=== PATIENT | male | born 1965 | race Caucasian/White ===

== ENCOUNTER 2017-10-08 13:48 | Emergency (ER) | payer MEDICAID ==
[~2017-10-08] VITALS: Ht 180.3 cm; Wt 80.0 kg
[2017-10-08] MEDS ORDERED: SODIUM CHLOR 0.9% 1000 ML INJ 1,000 ML IV SCH (14:10)
[2017-10-08] MEDS ORDERED: ONDANSETRON HCL 4 MG/2 ML VIAL IVP ONE (14:15)
[2017-10-08] MEDS ORDERED: HYDROmorphone HCL PF 2 MG/ML VIAL IV PUSH ONE (14:15)
[2017-10-08] MEDS ORDERED: SODIUM CHLORIDE 0.9% FLUSH 10 ML FLUSH IV FLUSH PRN (14:15)
[2017-10-08] MEDS ORDERED: FAMOTIDINE 20 MG/2 ML VIAL IV PUSH ONE (14:15)
--- NOTE | 2017-10-08 14:22 | PD ---
HPI Chief Complaint: Abdominal Pain Time Seen by Provider: 14:09 Travel History International Travel<30 days: No Contact w/Intl Traveler<30days: No Traveled to known affect area: No History of Present Illness HPI 52-year-old male complains of right flank pain and right upper quadrant abdominal pain. Patient states the symptoms started about 2 hours prior coming to the emergency room. EMS was called. Patient was given morphine 4 mg IV Zofran 4 mg IV prior to arrival. Patient denies any injury. Patient states the pain is severe sharp pain localized to right flank and right upper quadrant of the abdomen. Patient denies any pain radiation. Patient denies any fever chills. Patient denies any nausea vomiting diarrhea. Patient denies any abdominal surgery in the past. Patient states he is not on any routine medication. Patient stated he is allergic to medication. Patient has history of congenital heart disease in the past. On a scale of 1-10 the pain is a 10. PFSH Past Medical History ?: Not Social History Tobacco Use: No Allergies-Medications (Allergen,Severity, Reaction): Coded Allergies: No Known Allergies (Unverified , 10/08/17) Reported Meds & Prescriptions Reported Meds & Active Scripts Active Flomax (Tamsulosin HCl) 0.4 Mg Cap 0.4 Mg PO HS Zofran Odt (Ondansetron Odt) 4 Mg Tab 4 Mg SL Q6HR PRN [place] (Hydrocodone-Acetaminophen) 7.5-325 mg Tab 1 Tab PO Q6H PRN Review of Systems General / Constitutional: No: Fever Eyes: No: Visual changes HENT: No: Headaches Cardiovascular: No: Chest Pain or Discomfort Respiratory: No: Shortness of Breath Gastrointestinal: Positive: Abdominal Pain Genitourinary: No: Dysuria Musculoskeletal: No: Pain Skin: No Rash Neurologic: No: Weakness Psychiatric: No: Depression Endocrine: No: Polydipsia Hematologic/Lymphatic: No: Easy Bruising Physical Exam Narrative GENERAL: Well-nourished, well-developed patient. SKIN: Focused skin assessment warm/dry. HEAD: Normocephalic. EYES: No scleral icterus. No injection or drainage. NECK: Supple, trachea midline. No JVD or lymphadenopathy. CARDIOVASCULAR: Regular rate and rhythm without murmurs, gallops, or rubs. RESPIRATORY: Breath sounds equal bilaterally. No accessory muscle use. GASTROINTESTINAL: Abdomen soft, nondistended. Patient has moderate tenderness on palpation right upper quadrant and right flank area. No rebound tenderness. No mass. MUSCULOSKELETAL: No cyanosis, or edema. BACK: Nontender without obvious deformity. No CVA tenderness. Neurologic exam normal. Data Data Last Documented VS Vital Signs Date Time Temp Pulse Resp B/P (MAP) Pulse Ox O2 Delivery O2 Flow Rate FiO2 10/08/17 16:46 78 15 142/76 (98) 93 10/08/17 15:39 Room Air Orders Orders Complete Blood Count With Diff (10/08/17 14:10) Comprehensive Metabolic Panel (10/08/17 14:10) Lipase (10/08/17 14:10) Ct Abd/Pel W Iv Contrast(Rout) (10/08/17 14:10) Iv Access Insert/Monitor (10/08/17 14:10) Ecg Monitoring (10/08/17 14:10) Oximetry (10/08/17 14:10) Ondansetron Inj (Zofran Inj) (10/08/17 14:15) Sodium Chlor 0.9% 1000 Ml Inj (Ns 1000 M (10/08/17 14:10) Sodium Chloride 0.9% Flush (Ns Flush) (10/08/17 14:15) Famotidine Inj (Pepcid Inj) (10/08/17 14:15) Hydromorphone Pf Inj (Dilaudid Pf Inj) (10/08/17 14:15) Iohexol 350 Inj (Omnipaque 350 Inj) (10/08/17 15:37) Ketorolac Inj (Toradol Inj) (10/08/17 16:15) Ed Discharge Order (10/08/17 16:15) Labs Laboratory Tests Test 10/08/17 14:20 White Blood Count 7.6 TH/MM3 Red Blood Count 4.61 MIL/MM3 Hemoglobin 13.0 GM/DL Hematocrit 38.7 % Mean Corpuscular Volume 83.8 FL Mean Corpuscular Hemoglobin 28.2 PG Mean Corpuscular Hemoglobin Concent 33.7 % Red Cell Distribution Width 14.1 % Platelet Count 229 TH/MM3 Mean Platelet Volume 8.5 FL Neutrophils (%) (Auto) 67.4 % Lymphocytes (%) (Auto) 24.4 % Monocytes (%) (Auto) 7.0 % Eosinophils (%) (Auto) 0.5 % Basophils (%) (Auto) 0.7 % Neutrophils # (Auto) 5.1 TH/MM3 Lymphocytes # (Auto) 1.8 TH/MM3 Monocytes # (Auto) 0.5 TH/MM3 Eosinophils # (Auto) 0.0 TH/MM3 Basophils # (Auto) 0.1 TH/MM3 CBC Comment DIFF FINAL Differential Comment Blood Urea Nitrogen 18 MG/DL Creatinine 1.18 MG/DL Random Glucose 117 MG/DL Total Protein 7.1 GM/DL Albumin 3.8 GM/DL Calcium Level 8.7 MG/DL Alkaline Phosphatase 64 U/L Aspartate Amino Transf (AST/SGOT) 23 U/L Alanine Aminotransferase (ALT/SGPT) 30 U/L Total Bilirubin 0.4 MG/DL Sodium Level 143 MEQ/L Potassium Level 3.7 MEQ/L Chloride Level 110 MEQ/L Carbon Dioxide Level 24.9 MEQ/L Anion Gap 8 MEQ/L Estimat Glomerular Filtration Rate 65 ML/MIN Lipase 141 U/L MDM Medical Decision Making Medical Screen Exam Complete: Yes Emergency Medical Condition: Yes Interpretation(s) 1606 p.m. CBC within normal limit. CMP within normal limit. CT scan abdomen pelvis shows a 5 mm right renal calculus with hydronephrosis and hydroureter. 2 additional 2-3 mm nonobstructive calculi in the right kidney. Differential Diagnosis Differential diagnosis including nephrolithiasis, pyelonephritis, cholecystitis , colitis, musculoskeletal. Narrative Course 51-year-old male complains of right flank pain and right upper quadrant abdominal pain. Normal saline solution 1 25 cc an hour. Pepcid 20 mg IV. Dilaudid 1 mg IV. Diagnosis Primary Impression: Nephrolithiasis Patient Instructions: General Instructions Additional Instructions: Take medication as directed for pain. Follow-up with urologist. Return if intractable pain, fever, persistent vomiting. Med/Other Pt SpecificInfo: Prescription(s) given Scripts Tamsulosin (Flomax) 0.4 Mg Cap 0.4 MG PO HS for Manage Prostate Problems, #14 CAP 0 Refills Prov: Pancho Hernandez MD 10/08/17 Ondansetron Odt (Zofran Odt) 4 Mg Tab 4 MG SL Q6HR Y for Nausea/Vomiting, #10 TAB 0 Refills Prov: Pancho Hernandez MD 10/08/17 Hydrocodone-Acetaminophen ([place]) 7.5-325 mg Tab 1 TAB PO Q6H Y for PAIN, #20 TAB 0 Refills Prov: Pancho Hernandez MD 10/08/17 Disposition: 01 DISCHARGE HOME Condition: Stable Pancho Hernandez MD Oct 08, 2017 14:22
[2017-10-08 14:33] LABS: AUTOMATED NEUTROPHIL # 5.1 TH/MM3 (1.8-7.7); BASOPHIL # 0.1 TH/MM3 (0-0.2); BASOPHIL % 0.7 % (0.0-2.0); EOSINOPHIL % 0.5 % (0.0-4.0); HEMATOCRIT 38.7 % (39.0-51.0); LYMPH % 24.4 % (9.0-44.0); LYMPHOCYTE # 1.8 TH/MM3 (1.0-4.8); MEAN CELL VOLUME 83.8 FL (80.0-100.0); MEAN CORPUSCULAR HEMOGLOBIN 28.2 PG (27.0-34.0); MEAN CORPUSCULAR HGB CONC 33.7 % (32.0-36.0); MEAN PLATELET VOLUME 8.5 FL (7.0-11.0); MONOCYTE # 0.5 TH/MM3 (0-0.9); NEUT % 67.4 % (16.0-70.0); PLATELET COUNT 229 TH/MM3 (150-450); RED BLOOD COUNT 4.61 MIL/MM3 (4.50-5.90); RED CELL DISTRIBUTION WIDTH 14.1 % (11.6-17.2); WHITE BLOOD COUNT 7.6 TH/MM3 (4.0-11.0)
[2017-10-08 14:51] LABS: ALBUMIN 3.8 GM/DL (3.4-5.0); ALT (GPT) 30 U/L (12-78); AST (GOT) 23 U/L (15-37); BICARBONATE 24.9 MEQ/L (21.0-32.0); BLOOD UREA NITROGEN 18 MG/DL (7-18); CALCIUM 8.7 MG/DL (8.5-10.1); CHLORIDE 110 MEQ/L (98-107); CREATININE 1.18 MG/DL (0.60-1.30); GLOMERULAR FILTRATION RATE 65 ML/MIN (>89); GLUCOSE,RANDOM 117 MG/DL (74-106); LIPASE 141 U/L (73-393); SODIUM (NA) 143 MEQ/L (136-145)
[2017-10-08 14:54] LABS: ALKALINE PHOSPHATASE 64 U/L (45-117); TOTAL BILIRUBIN ADULT 0.4 MG/DL (0.2-1.0); TOTAL PROTEIN 7.1 GM/DL (6.4-8.2)
[2017-10-08 14:56] VITALS: BP 157/83; PULSE 85; RESP 14; O2SAT 93
[2017-10-08] MEDS ORDERED: IOHEXOL 350 MG/ML 10 ML VIAL (for RAD DIAG) IVCONTRAST ONE (15:37)
[2017-10-08 15:39] VITALS: BP 142/80; PULSE 76; RESP 15; O2SAT 93
--- NOTE | 2017-10-08 15:56 | RADRPT ---
EXAM DATE/TIME: 10/08/2017 15:24 [facility] COMPARISON: No previous studies available for comparison. INDICATIONS : Right upper quadrant pain for 0ne hour. IV CONTRAST: 99 cc Omnipaque 350 (iohexol) IV ORAL CONTRAST: No oral contrast ingested. RADIATION DOSE: 6.72 CTDIvol (mGy) MEDICAL HISTORY : None SURGICAL HISTORY : None. ENCOUNTER: Initial ACUITY: 1 day PAIN SCALE: 10/10 LOCATION: Right upper quadrant TECHNIQUE: Volumetric scanning of the abdomen and pelvis was performed. Using automated exposure control and ad justment of the mA and/or kV according to patient size, radiation dose was kept as low as reasonably achievable to obtain optimal diagnostic quality images. DICOM format image data is available electro nically for review and comparison. FINDINGS: LOWER LUNGS: Mild groundglass opacities right reflecting atelectasis. LIVER: Homogeneous density without lesion. There is no dilation of the biliary tree. No calcified gallston es. SPLEEN: Normal size without lesion. PANCREAS: Within normal limits. KIDNEYS: 5 mm calcified calculus at the right UVJ with associated mild to moderate right-sided hydroureteronep hrosis. There are additional 2-3 mm calcified calyceal calculi in the mid and inferior right kidney n o radiopaque renal calculi or hydronephrosis on the left. ADRENAL GLANDS: Within normal limits. VASCULAR: There is no aortic aneurysm. BOWEL/MESENTERY: The stomach, small bowel, and colon demonstrate no acute abnormality. There is no free intraperitone al air or fluid. ABDOMINAL WALL: Within normal limits. RETROPERITONEUM: There is no lymphadenopathy. BLADDER: No wall thickening or mass. REPRODUCTIVE: Within normal limits. INGUINAL: There is no lymphadenopathy or hernia. MUSCULOSKELETAL: Within normal limits for patient age. CONCLUSION: 1. 5 mm right UVJ calcified calculus with associated mild to moderate right-sided hydroureteronephros is. 2. Two additional 2-3 mm nonobstructing calyceal calculi in the right kidney. Manpreet Guerin MD on October 08, 2017 at 15:47 Board Certified Radiologist. This report was verified electronically.
[2017-10-08] MEDS ORDERED: ZOFR4TAB3 SL (16:15)
[2017-10-08] MEDS ORDERED: HYDR-3288 PO (16:15)
[2017-10-08] MEDS ORDERED: TAMS5CAP PO (16:15)
[2017-10-08] MEDS ORDERED: KETOROLAC TROMETHAMINE 30 MG/ML (IVP) VIAL IV PUSH ONE (16:15)
[2017-10-08 16:46] VITALS: BP 142/76
[2017-10-09] MEDS ORDERED: DILA2TAB4 PO (11:09)
== END 2017-10-08 17:04 | disposition home or self-care (01) ==
LOC: NEPC 13:48
DX: N13.2 Hydronephrosis with renal and ureteral calculous obstruction (principal)
CPT/HCPCS: 74177; 80053; 83690; 85025; 96361; 96374; 96375; 99285; J1170; J1885; J2405; J7030; Q9967

== ENCOUNTER 2017-10-09 08:28 | Emergency (ER) | payer MEDICAID ==
[~2017-10-09 08:28] MED LIST: HYDR-3288 PO; TAMS5CAP PO; ZOFR4TAB3 SL
[2017-10-09 08:30] VITALS: BP 167/97; PULSE 85; RESP 22; TEMP 99.5; O2SAT 98
[2017-10-09] MEDS ORDERED: MORPHINE SULFATE 4 MG/ML INJ IV PUSH ONE (08:45)
[2017-10-09] MEDS ORDERED: KETOROLAC TROMETHAMINE 30 MG/ML (IVP) VIAL IV PUSH ONE (08:45)
[2017-10-09] MEDS ORDERED: ONDANSETRON HCL 4 MG/2 ML VIAL IV PUSH ONE (08:45)
[2017-10-09] MEDS ORDERED: SODIUM CHLOR 0.9% 1000 ML INJ 1,000 ML IV ONE (08:45)
[2017-10-09] MEDS ORDERED: MORPHINE SULFATE 4 MG/ML INJ ONE (08:57)
[2017-10-09 09:27] LABS: AUTOMATED NEUTROPHIL # 6.5 TH/MM3 (1.8-7.7); BASOPHIL % 0.4 % (0.0-2.0); EOSINOPHIL % 0.3 % (0.0-4.0); HEMATOCRIT 37.5 % (39.0-51.0); HEMOGLOBIN 12.7 GM/DL (13.0-17.0); LYMPHOCYTE # 1.3 TH/MM3 (1.0-4.8); MEAN CORPUSCULAR HEMOGLOBIN 28.4 PG (27.0-34.0); MEAN CORPUSCULAR HGB CONC 33.8 % (32.0-36.0); MEAN PLATELET VOLUME 8.4 FL (7.0-11.0); MONOCYTE # 0.6 TH/MM3 (0-0.9); NEUT % 77.3 % (16.0-70.0); PLATELET COUNT 210 TH/MM3 (150-450); RED BLOOD COUNT 4.47 MIL/MM3 (4.50-5.90); RED CELL DISTRIBUTION WIDTH 14.2 % (11.6-17.2); WHITE BLOOD COUNT 8.5 TH/MM3 (4.0-11.0)
[2017-10-09 09:44] LABS: ALBUMIN 3.7 GM/DL (3.4-5.0); AST (GOT) 21 U/L (15-37); BICARBONATE 28.6 MEQ/L (21.0-32.0); BLOOD UREA NITROGEN 15 MG/DL (7-18); CALCIUM 8.6 MG/DL (8.5-10.1); CHLORIDE 105 MEQ/L (98-107); CREATININE 1.15 MG/DL (0.60-1.30); GLOMERULAR FILTRATION RATE 67 ML/MIN (>89); GLUCOSE,RANDOM 107 MG/DL (74-106); SODIUM (NA) 139 MEQ/L (136-145)
[2017-10-09 09:47] LABS: ALKALINE PHOSPHATASE 60 U/L (45-117); ALT (GPT) 29 U/L (12-78); TOTAL BILIRUBIN ADULT 0.5 MG/DL (0.2-1.0); TOTAL PROTEIN 7.4 GM/DL (6.4-8.2)
[2017-10-09] MEDS ORDERED: HYDROmorphone HCL 2 MG TAB PO ONE (10:15)
[2017-10-09] MEDS ORDERED: DILA2TAB4 PO (11:09)
--- NOTE | 2017-10-09 11:09 | PD ---
HPI Chief Complaint: Pain: Acute or Chronic Time Seen by Provider: 08:44 Travel History International Travel<30 days: No Contact w/Intl Traveler<30days: No History of Present Illness HPI Patient is a 51 year old male who comes in complaining of right flank pain radiating into his abdomen. He was here yesterday for this and was found to have a 5mm obstructing stone on the right. He was discharged with [place], which he has been taking without relief. He also complains of some nausea. He is still able to urinate. He denies any fever or chills. PFSH Past Medical History Kidney Stones: Yes Past Surgical History Surgical History: No Previous Surgery Social History Alcohol Use: No Tobacco Use: No Substance Use: No Allergies-Medications (Allergen,Severity, Reaction): Coded Allergies: No Known Allergies (Unverified , 10/08/17) Reported Meds & Prescriptions Reported Meds & Active Scripts Active Dilaudid (Hydromorphone HCl) 2 Mg Tab 2 Mg PO Q6H PRN Flomax (Tamsulosin HCl) 0.4 Mg Cap 0.4 Mg PO HS Zofran Odt (Ondansetron Odt) 4 Mg Tab 4 Mg SL Q6HR PRN [place] (Hydrocodone-Acetaminophen) 7.5-325 mg Tab 1 Tab PO Q6H PRN Review of Systems Except as stated in HPI: all other systems reviewed are Neg General / Constitutional: No: Fever, Chills HENT: No: Headaches, Lightheadedness Cardiovascular: No: Chest Pain or Discomfort Respiratory: No: Shortness of Breath Gastrointestinal: Positive: Nausea, Abdominal Pain Genitourinary: Positive: Flank Pain Musculoskeletal: No: Myalgias, Edema Skin: No Rash, No Change in Pigmentation Neurologic: No: Weakness, Dizziness Physical Exam Narrative GENERAL: Awake and alert, in no acute distress. SKIN: Focused skin assessment warm/dry. No signs of infection. HEAD: Atraumatic. Normocephalic. EYES: Pupils equal and round. No scleral icterus. EOMI. ENT: Mucous membranes pink and moist. NECK: Trachea midline. No JVD. CARDIOVASCULAR: Regular rate and rhythm. No murmur appreciated. RESPIRATORY: No accessory muscle use. Clear to auscultation. Breath sounds equal bilaterally. GASTROINTESTINAL: Abdomen soft, nondistended. Right CVA tenderness, tender to palpation of the right side of the abdomen. No rebound, voluntary guarding. MUSCULOSKELETAL: No obvious deformities. No clubbing. No cyanosis. No edema. NEUROLOGICAL: Awake and alert. No obvious cranial nerve deficits. Motor grossly within normal limits. Normal speech. PSYCHIATRIC: Appropriate mood and affect; insight and judgment normal. Data Data Last Documented VS Vital Signs Date Time Temp Pulse Resp B/P (MAP) Pulse Ox O2 Delivery O2 Flow Rate FiO2 10/09/17 11:56 10/09/17 08:30 99.5 85 22 98 Orders Orders Iv Access Insert/Monitor (10/09/17 08:44) Complete Blood Count With Diff (10/09/17 08:44) Comprehensive Metabolic Panel (10/09/17 08:44) Ketorolac Inj (Toradol Inj) (10/09/17 08:45) Morphine Inj (Morphine Inj) (10/09/17 08:45) Ondansetron Inj (Zofran Inj) (10/09/17 08:45) Sodium Chlor 0.9% 1000 Ml Inj (Ns 1000 M (10/09/17 08:45) Morphine Inj (Morphine Inj) (10/09/17 08:57) Hydromorphone (Dilaudid) (10/09/17 10:15) Ed Discharge Order (10/09/17 11:09) Mandatory Outpatient Referral (10/09/17 11:09) Labs Laboratory Tests Test 10/09/17 09:15 White Blood Count 8.5 TH/MM3 Red Blood Count 4.47 MIL/MM3 Hemoglobin 12.7 GM/DL Hematocrit 37.5 % Mean Corpuscular Volume 84.0 FL Mean Corpuscular Hemoglobin 28.4 PG Mean Corpuscular Hemoglobin Concent 33.8 % Red Cell Distribution Width 14.2 % Platelet Count 210 TH/MM3 Mean Platelet Volume 8.4 FL Neutrophils (%) (Auto) 77.3 % Lymphocytes (%) (Auto) 15.0 % Monocytes (%) (Auto) 7.0 % Eosinophils (%) (Auto) 0.3 % Basophils (%) (Auto) 0.4 % Neutrophils # (Auto) 6.5 TH/MM3 Lymphocytes # (Auto) 1.3 TH/MM3 Monocytes # (Auto) 0.6 TH/MM3 Eosinophils # (Auto) 0.0 TH/MM3 Basophils # (Auto) 0.0 TH/MM3 CBC Comment DIFF FINAL Differential Comment Blood Urea Nitrogen 15 MG/DL Creatinine 1.15 MG/DL Random Glucose 107 MG/DL Total Protein 7.4 GM/DL Albumin 3.7 GM/DL Calcium Level 8.6 MG/DL Alkaline Phosphatase 60 U/L Aspartate Amino Transf (AST/SGOT) 21 U/L Alanine Aminotransferase (ALT/SGPT) 29 U/L Total Bilirubin 0.5 MG/DL Sodium Level 139 MEQ/L Potassium Level 4.1 MEQ/L Chloride Level 105 MEQ/L Carbon Dioxide Level 28.6 MEQ/L Anion Gap 5 MEQ/L Estimat Glomerular Filtration Rate 67 ML/MIN MDM Medical Decision Making Medical Screen Exam Complete: Yes Emergency Medical Condition: Yes Medical Record Reviewed: Yes Differential Diagnosis UTI versus renal stone versus worsening kidney function Narrative Course Patient is a 51-year-old male who comes in complaining of right flank pain radiating into his abdomen. He was diagnosed with a renal stone yesterday and has been taking [place] without relief of his pain. IV status, labs sent. Creatinine is 1.15. Patient given morphine, Toradol, fluids. Reports feeling better. I spoke with Dr. Bryant of urology, who suggests discharging him with by mouth Dilaudid and having him follow-up next week in the clinic. Patient's pain started to return, he was given a dose of oral Dilaudid. Prescription written for the Dilaudid, mandatory referral placed to urology. Patient advised to follow-up in the office. Advised to return to the ED as needed for any worsening symptoms. Diagnosis Primary Impression: Renal stone Referrals: All Bryant MD call for appointment Patient Instructions: General Instructions, Kidney Stones (ED) Additional Instructions: Drink plenty of fluids. Take pain medicine as needed. Follow-up with urology next week. Return to the ED at any time for any worsening symptoms. Scripts Hydromorphone (Dilaudid) 2 Mg Tab 2 MG PO Q6H Y for Pain Management, #12 TAB 0 Refills Prov: Lesley Waters MD 10/09/17 Disposition: 01 DISCHARGE HOME Condition: Stable Lesley Waters MD Oct 09, 2017 11:09
== END 2017-10-09 11:57 | disposition home or self-care (01) ==
LOC: NEPE 08:28
DX: N20.0 Calculus of kidney (principal); Z87.442 Personal history of urinary calculi; Z79.899 Other long term (current) drug therapy
CPT/HCPCS: 80053; 85025; 96361; 96374; 96375; 99284; J1885; J2270; J2405; J7030